=== PATIENT | female | born 1990 | race Caucasian/White ===

== ENCOUNTER 2019-06-17 14:53 | Emergency (ER) | payer MEDICAID ==
[~2019-06-17] VITALS: Ht 157.5 cm; Wt 121.6 kg
[2019-06-17 15:01] VITALS: BP 127/85
[2019-06-17] MEDS ORDERED: NO HOME MEDS (15:17)
--- NOTE | 2019-06-17 16:03 | NUR ---
po hillary was done was able to swollow with out chocking state it casued some pain and did make her a little nausaded
[2019-06-17] MEDS ORDERED: GUAI118S13 PO (16:25)
== END 2019-06-17 16:34 | disposition home or self-care (01) ==
LOC: ER 14:54
DX: J02.9 Acute pharyngitis, unspecified (principal); R07.89 Other chest pain; Z88.0 Allergy status to penicillin; Z79.899 Other long term (current) drug therapy
CPT/HCPCS: 71045; 99283

== ENCOUNTER 2020-05-05 03:29 | Emergency (ER) | payer MEDICAID ==
[~2020-05-05] VITALS: Ht 157.5 cm; Wt 127.0 kg
[~2020-05-05 03:29] MED LIST: NO HOME MEDS
--- NOTE | 2020-05-05 03:53 | NUR ---
Per pt, noted pain to rt times [address] on ABT times 3 days ago with no relief. Pt states pain has gotten worse. Rates pain at a 10 at this time.
[2020-05-05] MEDS ORDERED: iohexol 300mg/ml 100ml inj. ONE (04:37)
[2020-05-05 04:56] LABS: ALBUMIN 3.8 G/DL (3.4-5.0); ANION GAP 10 (8-16); BLOOD UREA NITROGEN 12 MG/DL (7-18); BUN/CREATININE RATIO 17.1 (6.6-38.0); CALCIUM 8.7 MG/DL (8.5-10.1); CHLORIDE 104 MMOL/L (99-107); GLUCOSE 117 MG/DL (70-104); SODIUM 139 MMOL/L (135-145); TOTAL CARBON DIOXIDE 25.5 MMOL/L (24-32); eGFR > 90 ML/MIN
[2020-05-05 04:57] LABS: BASOPHILS # (AUTO) 0.1 X10'3 (0-0.2); BASOPHILS % (AUTO) 0.5 % (0-1); EOSINOPHILS # (AUTO) 0.1 X10'3 (0-0.9); EOSINOPHILS % (AUTO) 0.7 % (0-6); HEMATOCRIT 39.2 % (35.0-45.0); LYMPHOCYTES # (AUTO) 2.3 X10'3 (1.1-4.8); LYMPHOCYTES % (AUTO) 24.2 % (21-51); MEAN CORPUSCULAR HEMOGLOBIN 28.8 PG (27.0-31.0); MEAN CORPUSCULAR HGB CONC 33.1 g/dL (33.0-36.5); MEAN CORPUSCULAR VOLUME 87.1 FL (78-98); MEAN PLATELET VOLUME 7.9 FL (7.4-10.4); MONOCYTES # (AUTO) 0.7 X10'3 (0-0.9); NEUTROPHILS # (AUTO) 6.2 X10'3 (1.8-7.7); NEUTROPHILS % (AUTO) 66.6 % (42-75); PLATELET COUNT 324 X10'3 (140-440); RED CELL DISTRIBUTION WIDTH 13.8 % (11.5-14.5); WHITE BLOOD COUNT 9.3 X10'3 (4.5-11.0)
[2020-05-05] MEDS ORDERED: ibuprofen tablet 400 MG TABLET PO ONE ×2 (05:30→05:40)
[2020-05-05] MEDS ORDERED: clindamycin 600mg/D5W 50ml 50 ML IV ONE (05:50)
[2020-05-05] MEDS ORDERED: CLIN-97 PO (06:06)
[2020-05-05 06:14] VITALS: BP 140/79
--- NOTE | 2020-05-05 06:18 | NUR ---
Discussed pt's c/o pain w/ edmd [facility]; new order for [facility] received.
[2020-05-05] MEDS ORDERED: HYDROcodone/acetaminophen 5mg/325mg tablet PO ONE (06:20)
== END 2020-05-05 06:44 | disposition home or self-care (01) ==
LOC: ER 03:30
DX: H70.001 Acute mastoiditis without complications, right ear (principal); Z88.0 Allergy status to penicillin; Z79.2 Long term (current) use of antibiotics
CPT/HCPCS: 36415; 70481; 80048; 85025; 96365; 99285; Q9967; J3490

== ENCOUNTER 2020-12-03 17:39 | Emergency (ER) | payer MEDICAID ==
[~2020-12-03] VITALS: Ht 157.5 cm; Wt 120.0 kg
[~2020-12-03 17:39] MED LIST changes: +CLIN-97 PO
[2020-12-03] MEDS ORDERED: ketorolac trometh inj. 60 MG/2 ML VIAL IM ONE (21:30)
[2020-12-03] MEDS ORDERED: HYDROcodone/acetaminophen 5mg/325mg tablet PO ONE (21:30)
[2020-12-03] MEDS ORDERED: orphenadrine citrate 60mg/2ml inj. IM ONE (21:30)
[2020-12-03] MEDS ORDERED: ORPH100T2 PO (21:54)
[2020-12-03] MEDS ORDERED: HYDR-3965 PO (21:54)
[2020-12-03] MEDS ORDERED: NAPR-56 PO (21:54)
[2020-12-03 22:53] VITALS: BP 122/87
== END 2020-12-03 22:47 | disposition home or self-care (01) ==
LOC: ER 17:39
DX: S13.4XXA Sprain of ligaments of cervical spine, initial encounter (principal); S60.222A Contusion of left hand, initial encounter; Z88.0 Allergy status to penicillin; V49.9XXA Car occupant (driver) (passenger) injured in unspecified traffic accident, initial encounter; Y93.89 Activity, other specified; Y92.89 Other specified places as the place of occurrence of the external cause; Y99.8 Other external cause status
CPT/HCPCS: 29125; 73130; 73200; 73610; 99284; J1885; J2360

== ENCOUNTER 2022-10-15 20:55 | Emergency (ER) | payer SELFPAY ==
[~2022-10-15] VITALS: Ht 157.5 cm; Wt 127.3 kg
[~2022-10-15 20:55] MED LIST changes: +ORPH100T4 PO
[2022-10-15 21:06] VITALS: BP 184/92; PULSE 67; RESP 14; TEMP 98.3; O2SAT 99
== END 2022-10-15 23:52 | disposition left against medical advice (07) ==
LOC: ER 20:55
DX: K08.89 Other specified disorders of teeth and supporting structures (principal); Z53.21 Procedure and treatment not carried out due to patient leaving prior to being seen by health care provider
CPT/HCPCS: 99281